=== PATIENT | male | born 1995 | race Caucasian/White ===

== ENCOUNTER 2017-12-22 03:11 | Emergency (ER) | payer BC ==
[~2017-12-22] VITALS: Ht 188 cm; Wt 85.0 kg
[2017-12-22 03:13] VITALS: BP 146/73; PULSE 94; RESP 16; TEMP 98.2; O2SAT 99
[2017-12-22] MEDS ORDERED: ONDANSETRON HCL 4 MG/2 ML VIAL IV PUSH ONE (03:45)
[2017-12-22] MEDS ORDERED: SODIUM CHLOR 0.9% 1000 ML INJ 1,000 ML IV ONE (03:45)
[2017-12-22 04:19] LABS: BICARBONATE 29.6 MEQ/L (21.0-32.0); CALCIUM 8.7 MG/DL (8.5-10.1); CREATININE 0.91 MG/DL (0.60-1.30)
--- NOTE | 2017-12-22 04:23 | PD ---
HPI Chief Complaint: Alcohol/Drug Intoxication Time Seen by Provider: 04:08 Travel History International Travel<30 days: No Contact w/Intl Traveler<30days: No Traveled to known affect area: No History of Present Illness HPI 22-year-old white male presents emergency department with complaints of nausea and vomiting after drinking alcohol this evening. He states that he had been drinking vodka and wine coolers. He feels dehydrated. He would like to get something for nausea and some fluids. He denies any fever chills. No chest pain or shortness of breath. No abdominal pain or urinary symptoms. Symptoms are mild to moderate. Exacerbated by drinking alcohol. No alleviating factors. Patient states that he is from [facility] on spring [facility] Past Medical History Medical History: Denies Significant Hx Diminished Hearing: No Tetanus Vaccination: < 5 Years Past Surgical History Narrative Surgical Tonsillectomy Tonsillectomy: Yes Social History Alcohol Use: Yes Tobacco Use: No Substance Use: No Allergies-Medications (Allergen,Severity, Reaction): Coded Allergies: No Known Allergies (Unverified , 12/22/17) Reported Meds & Prescriptions Reported Meds & Active Scripts Active No Active Prescriptions or Reported Medications Review of Systems Except as stated in HPI: all other systems reviewed are Neg Physical Exam Narrative GENERAL: Well-developed, well-nourished in no acute distress. Nontoxic appearing. Intoxicated. HEAD: Normocephalic, atraumatic. EYES: Pupils equal round and reactive. Extraocular motions intact. No scleral icterus. No injection or drainage. ENT: TMs clear without erythema. The external auditory canals clear. Nose: clear . Posterior pharynx is pink and moist. No tonsillar edema or exudate. Uvula midline. Airway patent. NECK: Trachea midline.Supple, nontender, moves head freely. No central bony tenderness or spasm. CARDIOVASCULAR: Regular rate and rhythm without murmurs, gallops, or rubs. RESPIRATORY: Clear to auscultation. Breath sounds equal bilaterally. No wheezes , rales, or rhonchi. GASTROINTESTINAL: Abdomen soft, non-tender, nondistended. No hepato-splenomegaly , or palpable masses. No guarding. EXTREMITIES: No clubbing, cyanosis, or edema. No joint tenderness, effusion, or edema noted. BACK: Nontender without deformity or crepitance. No flank tenderness. Data Data Last Documented VS Vital Signs Date Time Temp Pulse Resp B/P (MAP) Pulse Ox O2 Delivery O2 Flow Rate FiO2 12/22/17 03:13 98.2 94 16 146/73 (97) 99 Orders Orders Basic Metabolic Panel (Bmp) (12/22/17 03:34) Ondansetron Inj (Zofran Inj) (12/22/17 03:45) Sodium Chlor 0.9% 1000 Ml Inj (Ns 1000 M (12/22/17 03:45) Ed Discharge Order (12/22/17 04:23) Labs Laboratory Tests Test 12/22/17 03:40 Blood Urea Nitrogen 12 MG/DL Creatinine 0.91 MG/DL Random Glucose 118 MG/DL Calcium Level 8.7 MG/DL Sodium Level 143 MEQ/L Potassium Level 3.2 MEQ/L Chloride Level 102 MEQ/L Carbon Dioxide Level 29.6 MEQ/L Anion Gap 11 MEQ/L Estimat Glomerular Filtration Rate 104 ML/MIN MDM Medical Decision Making Medical Screen Exam Complete: Yes Emergency Medical Condition: Yes Medical Record Reviewed: Yes Interpretation(s) BMP Diagram 12/22/17 03:40 Calcium Level 8.7 Differential Diagnosis Differential diagnoses: Alcohol intoxication, substance abuse, electrolyte abnormality, malingering Narrative Course The patient is accompanied by friends who are sober. The patient has been given a liter of normal saline and 4 mg of Zofran IV. The patient is feeling significantly improved. He is requesting discharge. The patient is considered medically stable and discharge to sober individuals. They have agreed to monitor the patient return if any problems. Diagnosis Primary Impression: Alcohol intoxication Additional Impressions: vomiting Hypokalemia Patient Instructions: General Instructions Additional Instructions: Rest. Increase fluids. Avoid alcohol. Avoid illegal substances. Eat a potassium rich diet Do not operate a car or any heavy machinery under the influence of alcohol or drugs. Wear sunscreen. Follow-up with a medical doctor this week. Return to the ER for emergencies Scripts No Active Prescriptions or Reported Meds Disposition: 01 DISCHARGE HOME Condition: Stable Arun Hickman Dec 22, 2017 04:23
== END 2017-12-22 04:45 | disposition home or self-care (01) ==
LOC: NEPD 03:11
DX: F10.129 Alcohol abuse with intoxication, unspecified (principal); R11.10 Vomiting, unspecified; E87.6 Hypokalemia
CPT/HCPCS: 80048; 96374; 99284; J2405; J7030